=== PATIENT | female | born 1960 | race Caucasian/White ===

== ENCOUNTER → 2018-06-18 11:42 | Outpatient (CLI) | payer OTHER, SELFPAY | PROVIDERS: Family Provider Family Medicine; PCP Family Medicine | DX: Z23 Encounter for immunization (principal) | CPT/HCPCS: 90471; 90682 ==

== ENCOUNTER 2018-12-08 14:30 | Emergency (ER) | payer OTHER, SELFPAY ==
[2018-12-08 14:34] VITALS: BP 136/74; PULSE 77; RESP 16; TEMP 36.3; O2SAT 98
--- NOTE | 2018-12-08 15:47 | ED.SKABFB ---
HPI - Skin/Abscess/Foreign Bdy <Rossana Hobbs PA-C - Last Filed: 12/08/18 21:50> General Chief complaint: Skin/Abscess/Foreign Body Stated complaint: Cyst inflamed and red Time Seen by Provider: 12/08/18 15:36 Source: patient Mode of arrival: ambulatory Limitations: no limitations History of Present Illness HPI narrative: This healthy 58-year-old female comes in due to enlarging lesion on her back for about 3 or 4 days. She states it was throbbing last night and her said the skin looked bruised around the area. It is not quite as painful today but still bothersome. She denies any fever or lesions elsewhere. She states that she did have a similar lesion removed from her neck years ago that was some type of cyst. Related Data Previous Rx's Medication Instructions Recorded amoxicillin-pot clavulanate 875 mg PO BID #20 tab 11/20/17 [Augmentin] Allergies Allergy/AdvReac Type Severity Reaction Status Date / Time No Known Drug Allergies Allergy Verified 12/08/18 14:36 Review of Systems <Rossana Hobbs PA-C - Last Filed: 12/08/18 21:50> Review of Systems ROS Unobtainable: All systems reviewed & are unremarkable except as noted in HPI and below PFSH <Rossana Hobbs PA-C - Last Filed: 12/08/18 21:50> Medical History Healthy adult (Chronic) Surgical History History of tonsillectomy Status post laparoscopy Family History Mother Age: 77 Hyperlipidemia Social History Smoking Status: Current every day smoker Family History Mother Age: 77 Hyperlipidemia Social History Smoking Status: Current every day smoker Exam <Rossana Hobbs PA-C - Last Filed: 12/08/18 21:50> Narrative Exam Narrative: GENERAL APPEARANCE: Patient sitting comfortably, in no distress. LUNGS: Clear to auscultation bilaterally. HEART: Rate and rhythm regular without murmur, normal S1 and S2, no S3 or S4. DERMATOLOGIC: Proximal lumbar spine in the midline there is a 2.5 cm firm nodule, slightly fluctuant. There does appear to be a central pore. Mildly tender to touch. There is slight erythema at the inferior border, otherwise overlying skin and surrounding skin is normal. Skin is cool to touch Initial Vital Signs Initial Vital Signs: Vital Signs Temperature 97.3 F L 12/08/18 14:34 Pulse Rate 77 12/08/18 14:34 Respiratory Rate 16 12/08/18 14:34 Blood Pressure 136/74 12/08/18 14:34 Pulse Oximetry 98 12/08/18 14:34 <DO Genoveva Bentley Last Filed: 12/09/18 08:09> Initial Vital Signs Initial Vital Signs: Vital Signs Temperature 97.3 F L 12/08/18 14:34 Pulse Rate 77 12/08/18 14:34 Respiratory Rate 16 12/08/18 14:34 Blood Pressure 136/74 12/08/18 14:34 Pulse Oximetry 98 12/08/18 14:34 Procedures <CRISTIANE Miles Last Filed: 12/08/18 21:50> Abscess I/D Site: back (Copious amount of malodorous sebaceous material expressed from multiple pockets. Small portion of cyst capsule removed) Local Anesthetic: lidocaine 1% and with epi Amount of anesthesia used (mL): 1 Technique: incised with #11 blade Irrigation: No Packing used?: none Course <Rossana Hobbs PA-C - Last Filed: 12/08/18 21:50> Vital Signs - 8 hr 12/08/18 14:34 Temperature 97.3 F L Pulse Rate 77 Respiratory Rate 16 Blood Pressure 136/74 Pulse Oximetry 98 <DO Genoveva Bentley Last Filed: 12/09/18 08:09> Vital Signs - 8 hr 12/08/18 14:34 Temperature 97.3 F L Pulse Rate 77 Respiratory Rate 16 Blood Pressure 136/74 Pulse Oximetry 98 Discharge Plan Departure Patient Disposition: Home Clinical Impression: Inflamed sebaceous cyst Discharge Date/Time: 12/08/18 16:27 Interventions: ED Discharge Assessment Last Done: 12/08/18 16:27 Instructions: DI for Epidermal Cyst Activity Restrictions/Additional Instructions: You have a sebaceous cyst on your back today (it sounds similar to the cyst that you had on your neck previously). I drained most of the sebaceous material from this today and got a little bit of the cyst capsule out. The skin around it does not appear infected, and this should help the pain considerably since it is not under pressure. Please use a hot pack on the area 2 or 3 times today and tomorrow until the wound closes to help express any remaining sebaceous material. Please see your PCP next week as you have planned for recheck. If this continues to be bothersome, you may need to have the whole capsule removed. Prescriptions: No Action amoxicillin-pot clavulanate [Augmentin] 875 MG/125 MG tablet 875 mg PO BID Qty: 20 RF: 0 Referrals: Brandy Bhatti DO [Primary Care Provider] - <Jenniffer Schrader DO - Last Filed: 12/09/18 08:09> Cosign ED Attending Mallikaature Attestation: I was immediately available in the department for consultation. Documentation has been reviewed. I agree with assessment and plan.
== END 2018-12-08 16:27 | disposition home or self-care (01) ==
PROVIDERS: Emergency Provider Internal Medicine; PCP Family Medicine
DX: L72.3 Sebaceous cyst (principal)
CPT/HCPCS: 10060; 99282

== ENCOUNTER → 2018-12-27 06:48 | Outpatient (CLI) | payer OTHER, SELFPAY ==
[2018-12-27 07:27] LABS: Add Manual Diff / Slide Review NO; Basophils Absolute Auto 0 /uL (0-100); Basophils Percent Auto 0.6 % (0-2); Eosinophils Absolute Auto 0 /uL (0-450); Hematocrit 41.3 % (36-46); Lymphocytes Absolute Auto 1400 /uL (1100-4500); Lymphocytes Percent Auto 24.8 % (25-40); Mean Corpuscular Hemoglobin 31.6 PG (26-34); Monocytes Absolute Auto 500 /uL (0-900); Neutrophils Absolute Auto 3600 /uL (1500-7000); Neutrophils Percent Auto 65.6 % (50-75); Platelet Count 288 X10^3/uL (150-400); Red Blood Cell Count 4.44 X10^6/uL (4.0-5.2); Red Cell Distribution Width 13.3 % (11.6-14.8); White Blood Cell Count 5.5 X10^3/uL (4.5-11.0)
[2018-12-27 08:01] LABS: Erythrocyte Sedimentation Rate 11 MM/HR (0-20)
[2018-12-27 10:15] LABS: Alanine Aminotransferase 21 IU/L (9-52); Albumin 4.2 g/dL (3.5-5.0); Albumin Globulin Ratio 1.4 (1.0-2.8); Alkaline Phosphatase 63 U/L (38-126); Aspartate Aminotransferase 18 IU/L (14-36); BUN Creatinine Ratio 22.5 (6-22); Bilirubin Total 0.4 mg/dL (0.2-1.3); Blood Urea Nitrogen 18 mg/dL (7-17); Calcium 9.4 mg/dL (8.4-10.2); Carbon Dioxide 24 mmol/L (22-32); Chloride 105 mmol/L (98-107); Cholesterol 225 mg/dL (140-199); Estimated Glomerular Filt Rate > 60.0 mL/min (>60); Globulin 2.9 g/dL (1.7-4.1); Glucose 92 mg/dL (80-110); HDL Cholesterol 77 mg/dL (40-60); HEMOLYSIS < 15 (0-50); LDL Cholesterol Calculated 140 mg/dL (<100); Potassium 4.8 mmol/L (3.4-5.1); Sodium 139 mmol/L (137-145); Total Protein 7.1 g/dL (6.3-8.2); Triglycerides 41 mg/dL (35-150)
[2018-12-27 10:43] LABS: Thyroid Stimulating Hormone 1.31 uIU/mL (0.47-4.68)
[2018-12-27 11:29] LABS: Appearance Urine UA CLEAR; Bilirubin Urine UA NEGATIVE (NEGATIVE); Color Urine UA YELLOW; Glucose Urine UA NEGATIVE (Negative); Ketones Urine UA NEGATIVE (NEGATIVE); Leukocyte Esterase Urine UA NEGATIVE (NEGATIVE); Nitrite Urine UA NEGATIVE (Negative); Occult Blood Urine UA 1+ (Negative); Protein Urine UA NEGATIVE (Negative); Specific Gravity Urine UA >=1.030 (1.000-1.035); Urobilinogen Urine UA 0.2 E.U./dL (0.2)
[2018-12-31 14:03] LABS: Lyme SCREEN w/ Reflex IgG IgM < 0.90 (< 0.90)
== END ==
PROVIDERS: PCP Family Medicine; Visit Provider Family Medicine
DX: E28.39 Other primary ovarian failure (principal); M25.50 Pain in unspecified joint; Z00.00 Encounter for general adult medical examination without abnormal findings; Z51.81 Encounter for therapeutic drug level monitoring; Z87.39 Personal history of other diseases of the musculoskeletal system and connective tissue
CPT/HCPCS: 36415; 80053; 80061; 81003; 84443; 85025; 85651; 86430; 86618

== ENCOUNTER → 2019-02-07 15:06 | Outpatient (CLI) | payer OTHER, SELFPAY | PROVIDERS: PCP Family Medicine; Visit Provider Family Medicine | DX: M85.88 Other specified disorders of bone density and structure, other site (principal); Z78.0 Asymptomatic menopausal state; F17.200 Nicotine dependence, unspecified, uncomplicated; Z82.62 Family history of osteoporosis | CPT/HCPCS: 77080 ==

== ENCOUNTER → 2019-02-13 14:59 | Outpatient (CLI) | payer OTHER, SELFPAY ==
--- NOTE | 2019-02-13 15:01 | DI.MG.S_ITS ---
BILATERAL DIGITAL SCREENING MAMMOGRAM 3D/2D WITH CAD: 02/13/2019 CLINICAL: Routine screening. Baseline exam. Family history of breast cancer. No prior exams were available for comparison. The tissue of both breasts is heterogeneously dense. This may lower the sensitivity of mammography. Current study was also evaluated with a Computer Aided Detection (CAD) system. No significant masses, calcifications, or other findings are seen in either breast. IMPRESSION: NEGATIVE There is no mammographic evidence of malignancy. A 1 year screening mammogram is recommended. This exam was interpreted at Station ID: [id number]. NOTE: For mammograms, a report in lay terms will be sent to the patient. Approximately 15% of breast malignancies will not be visualized mammographically. In the management of a palpable breast mass, a negative mammogram must not discourage biopsy of a clinically suspicious lesion. Electronically Signed By: Dillon gilliland/kennedi:02/13/2019 16:51:26 letter sent: Normal Exam ACR BI-RADS Category 1: Negative 3341F
== END ==
PROVIDERS: PCP Family Medicine; Visit Provider Family Medicine
DX: Z12.31 Encounter for screening mammogram for malignant neoplasm of breast (principal); Z80.3 Family history of malignant neoplasm of breast
CPT/HCPCS: 77063; 77067

== ENCOUNTER → 2019-06-18 15:07 | Outpatient (CLI) | payer OTHER, SELFPAY ==
--- NOTE | 2019-06-18 | DI.CT.S_ITS ---
PROCEDURE: CT CHEST WO CON INDICATIONS: Raised antibody titer TECHNIQUE: Noncontrast 5 mm thick sections acquired from the pulmonary apices to the posterior costophrenic angles. 1 mm lung window, 5 mm thick coronal and sagittal and 7 mm axial MIP reformats were then acquired. For radiation dose reduction, the following was used: automated exposure control, adjustment of mA and/or kV according to patient size. COMPARISON: None. FINDINGS: Image quality: Excellent. Lungs and pleura: Subtle patchy groundglass opacities are seen scattered in bilateral upper lobes with 6-7 mm ill-defined soft tissue density nodule involving posterior lateral aspect of right upper lobe series 3 image 118. Dependent atelectasis in posterior aspect of bilateral lung gan are seen. No pleural effusions or pneumothorax. Central and peripheral airways are patent and normal in caliber. Mediastinum: Heart size is normal. No pericardial effusion. No mediastinal adenopathy by size criteria. Thoracic aorta and central pulmonary arteries are normal in size. Esophagus is normal in caliber. No hiatal hernia. Bones and chest wall: No suspicious bony lesions. No vertebral body compression fractures. No axillary or supraclavicular adenopathy by size criteria. Thyroid gland is within normal limits. Abdomen: Visualized upper abdominal solid organs and bowel loops appear normal in the absence of contrast. IMPRESSION: 1. Subtle patchy groundglass opacity in bilateral upper lobes which may represent mild pneumonitis. 2. Ill-defined 6-7 mm nodular density involving lateral aspect of right upper lobe, and may represent subtle nodular infiltrate/atelectasis. No pleural effusion or pneumothorax. Airway is patent. 3. No mediastinal or hilar lymphadenopathy. Dictated by: Niall Eugene M.D. on 06/18/2019 at 16:28 Approved by: Niall Eugene M.D. on 06/18/2019 at 16:32
== END ==
PROVIDERS: PCP Family Medicine; Visit Provider Internal Medicine Rheumatology
DX: R76.0 Raised antibody titer (principal); R91.1 Solitary pulmonary nodule
CPT/HCPCS: 71250

== ENCOUNTER → 2019-06-24 13:44 | Outpatient (CLI) | payer OTHER, SELFPAY | PROVIDERS: PCP Family Medicine | DX: Z23 Encounter for immunization (principal) | CPT/HCPCS: 90471; 90682 ==

== ENCOUNTER → 2019-08-08 14:53 | Outpatient (CLI) | payer OTHER, SELFPAY ==
--- NOTE | 2019-08-08 14:54 | DI.US.S_ITS ---
PROCEDURE: US ARTERIAL DUPLEX LE BI INDICATIONS: LEG PAIN TECHNIQUE: Color and pulse Doppler interrogation was performed of both lower extremity arterial systems, with image documentation. COMPARISON: None. FINDINGS: Right lower extremity: Common femoral artery: 152 cm/sec, with triphasic flow. Deep femoral artery: 84 cm/sec, with triphasic flow. Proximal superficial femoral artery: 111 cm/sec, with triphasic flow. Mid superficial femoral artery: 116 cm/sec, with triphasic flow. Distal superficial femoral artery: 86 cm/sec, with triphasic flow. Popliteal artery: 68 cm/sec, with triphasic flow. Posterior tibial artery: 70 cm/sec, with triphasic flow. Anterior tibial artery/dorsalis pedis: 88 cm/sec, with triphasic flow. Wong-scale imaging description: No hemodynamically significant stenosis. Left lower extremity: Common femoral artery: 125 cm/sec, with triphasic flow. Deep femoral artery: 59 cm/sec, with triphasic flow. Proximal superficial femoral artery: 116 cm/sec, with triphasic flow. Mid superficial femoral artery: 100 cm/sec, with triphasic flow. Distal superficial femoral artery: 88 cm/sec, with triphasic flow. Popliteal artery: 45 cm/sec, with triphasic flow. Posterior tibial artery: 67 cm/sec, with triphasic flow. Anterior tibial artery/dorsalis pedis: 88 cm/sec, with triphasic flow. Wong-scale imaging description: No hemodynamically significant stenosis. IMPRESSION: 1. No hemodynamically significant stenosis. No vascular etiology for leg pain. Dictated by: Nicky Lee M.D. on 08/08/2019 at 17:43 Approved by: Nicky Lee M.D. on 08/08/2019 at 17:58
== END ==
PROVIDERS: PCP Family Medicine; Visit Provider Internal Medicine
DX: M79.604 Pain in right leg (principal); M79.605 Pain in left leg
CPT/HCPCS: 93925

== ENCOUNTER → 2020-04-29 14:51 | Outpatient (CLI) | payer OTHER, SELFPAY | PROVIDERS: PCP Registered Nurse Diabetes Educator; Referring Provider Family Medicine; Visit Provider Family Medicine | DX: G56.00 Carpal tunnel syndrome, unspecified upper limb (principal) | CPT/HCPCS: 95886; 95911 ==

== ENCOUNTER → 2020-11-24 15:50 | Outpatient (CLI) | payer OTHER, SELFPAY ==
[2020-11-24] MEDS: COVID-19 VACC, Ad26(JANSSEN)/PF 0.5 ML IM (16:05)
== END ==
PROVIDERS: PCP Registered Nurse Diabetes Educator; Visit Provider Internal Medicine
DX: Z23 Encounter for immunization (principal)
CPT/HCPCS: 0031A; 91303

== ENCOUNTER → 2021-02-04 14:00 | Outpatient (CLI) | payer OTHER, SELFPAY ==
--- NOTE | 2021-02-04 14:02 | DI.RAD.S_ITS ---
PROCEDURE: XR CERVICAL SPINE 2V OR 3V INDICATIONS: eval chronic neck pain x years TECHNIQUE: 3 view(s) of the cervical spine were acquired. COMPARISON: None. FINDINGS: Bones: No evidence of acute fracture. There is minimal narrowing of the C5-C6 disc space. Multilevel degenerative endplate sclerosis and spurring. Diffuse facet arthropathy. Soft tissues: No prevertebral soft tissue swelling. IMPRESSION: Minimal C5-C6 spondylosis and diffuse facet arthropathy as above Dictated by: Quan Perez M.D. on 02/04/2021 at 14:59 Approved by: Quan Perez M.D. on 02/04/2021 at 15:00
--- NOTE | 2021-02-04 14:02 | DI.RAD.S_ITS ---
PROCEDURE: XR KNEE STANDING BI INDICATIONS: worsening bilateral knee pain, no trauma TECHNIQUE: Single weight-bearing views of the right and left knee COMPARISON: None. FINDINGS: Bones: No acute fracture. The joint spaces grossly preserved. Scattered degenerative subchondral sclerosis and spurring. IMPRESSION: Mild degenerative changes as above. If the patient's pain or other symptoms persist, consider further evaluation with MRI Dictated by: Quan Perez M.D. on 02/04/2021 at 14:58 Approved by: Quan Perez M.D. on 02/04/2021 at 14:59
== END ==
PROVIDERS: PCP Registered Nurse Diabetes Educator; Referring Provider Registered Nurse Diabetes Educator; Visit Provider Registered Nurse Diabetes Educator
DX: M17.0 Bilateral primary osteoarthritis of knee (principal); M54.2 Cervicalgia
CPT/HCPCS: 72040; 73565

== ENCOUNTER → 2021-06-04 08:09 | Outpatient (CLI) | payer OTHER, SELFPAY ==
[2021-06-04 08:57] LABS: Hematocrit 42.7 % (36-46); Hemoglobin 14.2 g/dL (12.0-16.0); Mean Corpuscular HGB Conc 33.2 % (30-36); Mean Corpuscular Hemoglobin 31.3 PG (26-34); Mean Corpuscular Volume 94.3 fL (80-100); Platelet Count 315 X10^3/uL (150-400); Red Blood Cell Count 4.53 X10^6/uL (4.0-5.2); Red Cell Distribution Width 13.4 % (11.6-14.8); White Blood Cell Count 7.4 X10^3/uL (4.5-11.0)
[2021-06-04 09:11] LABS: Alanine Aminotransferase 20 IU/L (<35); Albumin 4.2 g/dL (3.5-5.0); Albumin Globulin Ratio 1.3 (1.0-2.8); Alkaline Phosphatase 67 U/L (38-126); Aspartate Aminotransferase 23 IU/L (14-36); BUN Creatinine Ratio 18.8 (6-22); Bilirubin Total 0.5 mg/dL (0.2-1.3); Blood Urea Nitrogen 16 mg/dL (7-17); Calcium 9.5 mg/dL (8.4-10.2); Carbon Dioxide 27 mmol/L (22-32); Chloride 109 mmol/L (98-107); Cholesterol 254 mg/dL (140-199); Estimated Glomerular Filt Rate > 60.0 mL/min (>60); Globulin 3.2 g/dL (1.7-4.1); Glucose 103 mg/dL (80-110); HDL Cholesterol 79 mg/dL (40-60); HEMOLYSIS < 15 (0-50); LDL Cholesterol Calculated 165 mg/dL (<100); Potassium 4.2 mmol/L (3.4-5.1); Sodium 140 mmol/L (137-145); Total Protein 7.4 g/dL (6.3-8.2); Triglycerides 48 mg/dL (35-150)
[2021-06-04 09:44] LABS: TSH w/ Reflex to FT4 1.47 uIU/mL (0.47-4.68)
== END ==
PROVIDERS: PCP Registered Nurse Diabetes Educator; Referring Provider Registered Nurse Diabetes Educator; Visit Provider Registered Nurse Diabetes Educator
DX: E78.5 Hyperlipidemia, unspecified (principal)
CPT/HCPCS: 36415; 80053; 80061; 84443; 85027

== ENCOUNTER → 2021-07-14 11:13 | Outpatient (CLI) | payer OTHER, SELFPAY ==
--- NOTE | 2021-07-14 11:14 | DI.RAD.S_ITS ---
PROCEDURE: XR DEXA AXIAL SKELETON INDICATIONS: reeval osteopenia COMPARISON: [facility], CR, XR DEXA AXIAL SKELETON, 02/07/2019, 15:33. FINDINGS: This blank DEXA report has been sent in error by the PACS system. The correct and complete report will be forthcoming in 1-2 days. Thank you for your patience and understanding. Dictated by: Kyle Pleitez M.D. on 07/15/2021 at 10:10 Approved by: Kyleigh Fox MD, PhD on 08/02/2021 at 10:04
--- NOTE | 2021-07-14 11:14 | DI.MG.S_ITS ---
BILATERAL DIGITAL SCREENING MAMMOGRAM 3D/2D WITH CAD: 07/14/2021 CLINICAL: Routine screening. Family history of breast cancer. Comparison is made to exam dated: 02/13/2019 [facility]. The tissue of both breasts is heterogeneously dense. This may lower the sensitivity of mammography. Current study was also evaluated with a Computer Aided Detection (CAD) system. There is a benign calcification in the left breast. No significant masses, calcifications, or other findings are seen in either breast. There has been no significant interval change. IMPRESSION: BENIGN There is no mammographic evidence of malignancy. A 1 year screening mammogram is recommended. This exam was interpreted at Station ID: [id number]. NOTE: For mammograms, a report in lay terms will be sent to the patient. Approximately 15% of breast malignancies will not be visualized mammographically. In the management of a palpable breast mass, a negative mammogram must not discourage biopsy of a clinically suspicious lesion. Electronically Signed By: Sukumar Kim acr/penrad:07/14/2021 13:12:53 letter sent: Normal Exam ACR BI-RADS Category 2: Benign Finding(s) 3342F
== END ==
PROVIDERS: PCP Registered Nurse Diabetes Educator; Referring Provider Registered Nurse Diabetes Educator; Visit Provider Registered Nurse Diabetes Educator
DX: Z12.31 Encounter for screening mammogram for malignant neoplasm of breast (principal); Z80.3 Family history of malignant neoplasm of breast; M85.88 Other specified disorders of bone density and structure, other site; Z78.0 Asymptomatic menopausal state; Z82.62 Family history of osteoporosis; Z72.0 Tobacco use
CPT/HCPCS: 77063; 77067; 77080